=== PATIENT | female | born 1980 | race Caucasian/White ===

== ENCOUNTER 2017-10-26 20:12 | Inpatient (IN) ==
[2017-10-26] MEDS ORDERED: DEXTROSE 5%-LACTATED RINGERS 1,000 ML IV PRN (21:11)
[2017-10-26] MEDS ORDERED: RINGER'S SOLUTION,LACTATED 1,000 ML IV ONE (21:11)
[2017-10-26] MEDS ORDERED: OXYTOCIN/DEXTROSE 5%-WATER 30 UNITS/500 ML BAG IV ONE (21:11)
[2017-10-26] MEDS ORDERED: ONDANSETRON HCL/PF 2 MG/ML VIAL IV PRN (21:11)
--- NOTE | 2017-10-27 09:44 | PN ---
Progess Note - Interim Date: 10/27/17 Time: 09:43 Narrative: 10/27/17 09:43 Patient rating her contractions as mild Vital signs stable. Pitocin at 20 mu/min. FHT: reassuring Contractions q 1-4 min Cervix: 2/50/-2 Impression: Intrauterine at 38-3/7 weeks with premature rupture of membranes approximately 7 PM last night, slow progress today. Plan: Grande bulb placed within the cervical canal and inflated to 75 mL. We'll take patient off of Pitocin and allow her to eat and take a shower. Restart Pitocin in 1 hour. Epidural when patient becomes more uncomfortable and starts making cervical change.
--- NOTE | 2017-10-27 09:59 | HP ---
Chief Complaint - Chief Complaint Date of Service: 10/27/17 Time of Service: 09:46 Chief Complaint: leaking fluid History of Present Illness: 37 yo at 38 2/7 wks at time of admission presented to L&D last pm with complaint of continuous leaking of clear vaginal fluid since about 1930 last pm which started while doing squats. She denies contractions, vaginal bleeding, decreased movement, headache, or visual changes. This complicated by AMA and hypothyroid. Rh positive Rubella immune GBS negative. Medical History (Last Reviewed 10/27/17 @ 09:53 by Miguel Kent DO) PVCs (premature ventricular contractions) Onset Date: ~03/2011 Allergy to mold Onset Date: Unknown [place] pollen allergy Headache Onset Date: Unknown History of hay fever House dust mite allergy Hypothyroid Onset Date: ~2010 Migraine Onset Date: Unknown UTI (urinary tract infection), uncomplicated Onset Date: ~2000 Anemia Onset Date: ~2010 Breast lump Onset Date: ~1999 Dizziness Onset Date: Unknown Eczema Onset Date: Unknown Heartburn Onset Date: ~2012 Mononucleosis Onset Date: Unknown Surgical History: Surgical History (Last Reviewed 10/27/17 @ 09:53 by Miguel Kent DO) History of tonsillectomy and adenoidectomy Onset Date: ~1999 [place] teeth extracted Onset Date: ~2000 Family History: Family History (Last Reviewed 10/27/17 @ 09:53 by Miguel Kent DO) Father Diabetes Hypothyroidism Prostate cancer Mother Hypothyroidism Scoliosis Osteoporosis Hypercholesterolemia Brother Asthma Grandfather Melanoma Grandmother Alzheimers disease Grandfather CVA (cerebral vascular accident) Rheumatic fever with cardiac involvement Grandmother Cancer Hypothyroidism Diabetes Kidney failure Social History: Preferred Language Cambodian Review Of Systems (GEN) - Review of Systems Generalized/Overall Review: Present: No Symptoms Reported EENTM: Present: No Symptoms Reported Respiratory: Present: No Symptoms Reported Cardiac: Present: No Symptoms Reported Abdominal: Present: No Symptoms Reported Genitourinary: Present: Other - leaking clear vaginal fluid Musculoskeletal: Present: No Symptoms Reported Neurological: Present: No Symptoms Reported Skin: Present: No Symptoms Reported Endocrine: Present: No Symptoms Reported Allergies/Adverse Reactions: Allergies Allergy/AdvReac Type Severity Reaction Status Date / Time animal dander Allergy Unknown sinus Verified 10/04/17 15:57 congestion No Known Drug Allergies Allergy Verified 10/26/17 21:18 Home Medications: HOME MEDICATIONS Levothyroxine Sodium [Synthroid] 125 mcg PO DAILY 01/19/12 [Last Taken 10/26/17] Vits96/Iron Fum/Folic [ S] 1 tab PO DAILY 03/22/13 [Last Taken 10/26/17] Exam - Exam Vital Signs: Vital Signs - Last Taken Temp 37.2 C 10/26/17 21:00 Pulse 89 10/26/17 21:00 Resp 18 10/26/17 21:00 BP 115/70 10/26/17 21:00 Pulse Ox 96 10/26/17 21:00 Constitutional: Present: Alert, Oriented x3, Cooperative ENT Exam: Present: hearing grossly normal Neck: Absent: thyromegaly Back Exam: Present: no CVA tenderness Breasts: Present: Exam deferred Respiratory: Present: lungs clear, no respiratory distress Cardiovascular/Chest: Present: normal peripheral pulses, regular rate, rhythm, no edema Abdomen: Present: soft, nontender, other - gravid /Rectal: Present: Other - cervix 1/50/-2, gross ROM - clear Extremity: Present: non-tender, no pedal edema, no calf tenderness Skin Exam: Present: normal color, warm/dry, no cyanosis Lymphatic: Present: no adenopathy Neurologic: Present: alert, normal mood/affect, oriented x 3 Appearance: Present: appropriate appearance, appropriate insight Eye contact: Present: cooperative, good eye contact, normal speech Thoughts: Present: normal thought pattern Assessment/Plan - Assessment/Plan (1) Premature rupture of membranes (PROM) affecting fourth Assessment: Admit for pitocin augmentation of labor. Minimize vaginal exams. Epidural PRN. Problem: Acute (2) Advanced maternal age in multigravida Problem: Acute Qualifiers: Trimester: third trimester Qualified Code(s): O09.523 - Supervision of elderly multigravida, third trimester (3) Hypothyroid Problem: Chronic Qualifiers: Hypothyroidism type: unspecified Qualified Code(s): E03.9 - Hypothyroidism , unspecified
[2017-10-27] MEDS ORDERED: BUPIVACAINE HCL/0.9 % NACL/PF 250 ML EP PRN (12:42)
[2017-10-27] MEDS ORDERED: ONDANSETRON HCL/PF 2 MG/ML VIAL IV PRN (12:42)
[2017-10-27] MEDS ORDERED: NALOXONE HCL 1 MG/1 ML SYRG IV PRN (12:42)
[2017-10-27] MEDS ORDERED: fentaNYL CITRATE/PF 50 MCG/ML AMPUL IT SCH (12:45)
--- NOTE | 2017-10-27 12:47 | ANES ---
Anesthesia Pre Procedure Eval Vitals/Labs: Last Vital Signs Temp 37.2 C 10/26/17 21:00 Pulse 89 10/26/17 21:00 Resp 18 10/26/17 21:00 BP 115/70 10/26/17 21:00 Pulse Ox 96 10/26/17 21:00 HOME MEDICATIONS Levothyroxine Sodium [Synthroid] 125 mcg PO DAILY 01/19/12 [Last Taken 10/26/17] Vits96/Iron Fum/Folic [ S] 1 tab PO DAILY 03/22/13 [Last Taken 10/26/17] Allergies/Adverse Reactions: Allergies Allergy/AdvReac Type Severity Reaction Status Date / Time animal dander Allergy Unknown sinus Verified 10/04/17 15:57 congestion No Known Drug Allergies Allergy Verified 10/26/17 21:18 - Planned Procedure Planned Procedure: RULE OUT LABOR Medication List Reviewed:: Yes Allergies Verified: Yes Medical History (Last Reviewed 10/27/17 @ 09:53 by Miguel Kent DO) PVCs (premature ventricular contractions) Onset Date: ~03/2011 Allergy to mold Onset Date: Unknown [place] pollen allergy Headache Onset Date: Unknown History of hay fever House dust mite allergy Hypothyroid Onset Date: ~2010 Migraine Onset Date: Unknown UTI (urinary tract infection), uncomplicated Onset Date: ~2000 Anemia Onset Date: ~2010 Breast lump Onset Date: ~1999 Dizziness Onset Date: Unknown Eczema Onset Date: Unknown Heartburn Onset Date: ~2012 Mononucleosis Onset Date: Unknown Surgical History (Last Reviewed 10/27/17 @ 09:53 by Miguel Kent DO) History of tonsillectomy and adenoidectomy Onset Date: ~1999 [place] teeth extracted Onset Date: ~2000 Family History (Last Reviewed 10/27/17 @ 09:53 by Miguel Kent DO) Father Diabetes Hypothyroidism Prostate cancer Mother Hypothyroidism Scoliosis Osteoporosis Hypercholesterolemia Brother Asthma Grandfather Melanoma Grandmother Alzheimers disease Grandfather CVA (cerebral vascular accident) Rheumatic fever with cardiac involvement Grandmother Cancer Hypothyroidism Diabetes Kidney failure - Family Anesthesia History Family History:: no untoward family reactions to anesthesia - Airway/Neck/Teeth Within Normal Limits:: Yes Denture Type: None Mallampatti Score: 2 Thyromental (T-M) distance: > 6 cm Mandibulo Hyoid distance: > 3 cm - Respiratory Respiratory: lungs clear Discussed smoking cessation including day of surgery: No Sleep Apnea currently treated: No - Cardiovascular Patient History - Cardiac/Respiratory: No pertinent hx Tolerates Activity: Good Heart Sounds: S1 & S2, Regular - Anesthesia Assessment and Plan ASA Class: PS, II, E Anesthesia Type Plan: Epidural Planned difficult intubation/equipment available: No
--- NOTE | 2017-10-27 13:18 | ANES ---
Anesthesia Procedure Note Procedure Note: ANESTHESIA PROCEDURE NOTE Date of Procedure: 10/27/2017 Time of procedure:[]. 1300 Performed by: Cy Bolton CRNA Lease Out Man: None. Preprocedure diagnosis: Active labor. Post procedure diagnosis: Same. Procedure: Insertion of labor epidural. Indications: The patient is a [37] -year-old [multigravida] female in active labor requesting labor epidural for pain management. Findings: See below. Details of the procedure: The patient was placed in a sitting position. Back was prepped with DuraPrep. Patient was then draped in a sterile fashion. Lidocaine 1% was infiltrated to the skin and subcutaneous tissues at the level of the L3 4 interspace. The epidural space was identified using a 18-gauge Tuohy needle with [id number] technique. 20 mcg fentanyl was given intrathecally using a 27 ga. spinal needle. Epidural catheter was inserted without difficulty. Negative test dose was elicited using 5 mL of 1.5% preservative-free lidocaine plus epinephrine 1 200,000. The epidural catheter was then taped and secured in place. EBL: Minimal. Fluids: N/A. Specimen: N/A. Post procedure condition: The patient tolerated the procedure well. No complications were noted. Thank you for this consultation. Katz CRNA
--- NOTE | 2017-10-27 17:13 | PN ---
Progess Note - Interim Date: 10/27/17 Time: 17:10 Narrative: 10/27/17 17:10 Patient comfortable with epidural Vital signs stable. Pitocin at 21 mu/min. FHT: 125 baseline, reassuring Contractions q 2-3 min Cervix: 5/75/-2 Impression: Intrauterine at 38 3/7 weeks prolonged premature rupture of membranes in early labor with protracted dilation Plan: Continue position changes and pitocin augmentation.
--- NOTE | 2017-10-27 19:13 | PN ---
Progess Note - Interim Date: 10/27/17 Time: 19:11 Narrative: 10/27/17 19:11 Patient comfortable with epidural Vital signs stable. Pitocin at 24 mu/min. FHT: 130 baseline, reassuring Contractions q 2-3 min Cervix: 7/80/-1 Impression: Intrauterine at 38-3/7 weeks long premature rupture membranes in labor - no signs of infection. Difficulty picking up contractions Plan: Anticipate normal spontaneous vaginal delivery within the next couple hours. IUPC placed to better assess strength and frequency of contractions
[2017-10-27] MEDS ORDERED: MISOPROSTOL 200 MCG TABLET PO PRN (21:19)
[2017-10-27] MEDS ORDERED: BISACODYL 10 MG SUPP.RECT RC PRN (21:32)
[2017-10-27] MEDS ORDERED: SENNOSIDES 8.6 MG TABLET PO PRN (21:32)
[2017-10-27] MEDS ORDERED: oxyCODONE HCL/ACETAMINOPHEN 1 TAB TABLET PO PRN (21:32)
[2017-10-27] MEDS ORDERED: GLYCERIN/WITCH HAZEL LEAF 40 APPL BOX TP PRN (21:32)
[2017-10-27] MEDS ORDERED: OXYTOCIN/DEXTROSE 5%-WATER 30 UNITS/500 ML BAG IV ONE (21:32)
[2017-10-27] MEDS ORDERED: BENZOCAINE/MENTHOL 81 SPRAY CAN TP PRN (21:32)
[2017-10-27] MEDS ORDERED: HYDROCORTISONE 30 APPL TUBE TP PRN (21:32)
--- NOTE | 2017-10-27 21:39 | OR ---
Operative Report - Dictated Report Narrative: Spontaneous vaginal delivery of viable male at 2118 on 10/27/2017 with Apgars 9 and 9, weighing 3365 g in FACUNDO position with tight nuchal cord 1 and true knot in cord 1. Cord clamping delayed approximately 1 minute Placenta delivered complete, intact, with three vessel cord Estimated blood loss: less than 50 ml. due to prolonged labor and need for high -dose Pitocin patient was prophylactically given 200 g of Cytotec rectally once the placenta delivered. Anesthesia: epidural Lacerations: None
[2017-10-27] MEDS: IBUPROFEN 800 MG TABLET PO PRN (22:57)
[2017-10-28] MEDS: oxyCODONE HCL/ACETAMINOPHEN 1 TAB TABLET PO PRN ×4 (01:17→21:54)
--- NOTE | 2017-10-28 03:29 | PN ---
Subjective - Date and Time Seen Date: 10/28/17 Time: 03:28 Objective - Vitals Vitals: Last Vital Signs Temp 37.0 C 10/27/17 23:30 Pulse 68 10/28/17 01:50 Resp 16 10/28/17 01:50 BP 108/59 10/28/17 01:50 Pulse Ox 97 10/28/17 01:50 Patient denies complaints. Lochia wnl Abdomen - soft, nontender Uterus - firm, at umbilicus No calf tenderness Impression: day #1 - s/p spontaneous vaginal delivery. Plan: Continue routine care Cauti Physician Documentation - Urinary Catheter Management Urethral (Grande) Date of Insertion: 10/27/17 Time of Insertion: 14:00 Assessment/Plan - Problems/Diagnosis (1) Premature rupture of membranes (PROM) affecting fourth Problem: Acute (2) Advanced maternal age in multigravida Problem: Acute Qualifiers: Trimester: third trimester Qualified Code(s): O09.523 - Supervision of elderly multigravida, third trimester (3) Hypothyroid Problem: Chronic Qualifiers: Hypothyroidism type: unspecified Qualified Code(s): E03.9 - Hypothyroidism , unspecified
[2017-10-28] MEDS: IBUPROFEN 800 MG TABLET PO PRN ×3 (05:34→19:44)
[2017-10-28] MEDS: LEVOTHYROXINE SODIUM 125 MCG TABLET PO SCH (07:59)
[2017-10-28] MEDS ORDERED: PRENATAL VITS96/IRON FUM/FOLIC 1 TAB TABLET PO SCH (09:00)
[2017-10-28] MEDS: DOCUSATE SODIUM 100 MG CAPSULE PO SCH ×2 (09:08→20:23)
--- NOTE | 2017-10-28 10:25 | PN ---
Progess Note - Interim Date: 10/28/17 Time: 10:25 History for MU Definition: * The number of deliveries resulting in a live the patient experienced prior to current hospitalization * The previous delivery of live twins or any live multiple gestation is considered one live event. *If primagravida or nulliparous is documented select zero for the number of previous live births. Live Events: 3
[2017-10-29] MEDS: IBUPROFEN 800 MG TABLET PO PRN (05:27)
[2017-10-29 07:26] VITALS: BP 91/54
[2017-10-29] MEDS: LEVOTHYROXINE SODIUM 125 MCG TABLET PO SCH (07:39)
--- NOTE | 2017-10-29 14:08 | PN ---
Subjective - Date and Time Seen Date: 10/29/17 Time: 14:07 Objective - Vitals Vitals: Last Vital Signs Temp 36.3 C 10/29/17 07:23 Pulse 62 10/29/17 07:23 Resp 18 10/29/17 07:23 BP 91/54 10/29/17 07:23 Pulse Ox 99 10/29/17 07:23 Patient denies complaints. Lochia wnl Abdomen - soft, nontender Uterus - firm, at umbilicus - 2 No calf tenderness Impression: day #2 - s/p spontaneous vaginal delivery. Hypothyroid- stable. Advanced maternal age Plan: Routine discharge instructions Cauti Physician Documentation - Urinary Catheter Management Urethral (Grande) Date of Insertion: 10/27/17 Time of Insertion: 14:00 Assessment/Plan - Problems/Diagnosis (1) Premature rupture of membranes (PROM) affecting fourth Problem: Acute (2) Advanced maternal age in multigravida Problem: Acute Qualifiers: Trimester: third trimester Qualified Code(s): O09.523 - Supervision of elderly multigravida, third trimester (3) Hypothyroid Problem: Chronic Qualifiers: Hypothyroidism type: unspecified Qualified Code(s): E03.9 - Hypothyroidism , unspecified
== END 2017-10-29 14:10 | disposition home or self-care (01) | DRG 775 ==
LOC: OBCLINIC 20:12 → OB 20:31
PROVIDERS: ADMIT Obstetrics & Gynecology; ATTEND Obstetrics & Gynecology
CPT/HCPCS: 59025